=== PATIENT | male | born 1995 | race Caucasian/White ===

== ENCOUNTER 2016-06-09 06:41 | Emergency (ER) | payer OTHER ==
[~2016-06-09] VITALS: Ht 190.5 cm; Wt 63.5 kg
[2016-06-09 06:44] VITALS: BP 111/65; PULSE 68; RESP 14; TEMP 97.8; O2SAT 100
[2016-06-09] MEDS ORDERED: KETOROLAC TROMETHAMINE 60 MG/2 ML (IM) VIAL IM ONE (07:15)
--- NOTE | 2016-06-09 07:26 | PD ---
HPI Chief Complaint: Hip Injury Time Seen by Provider: 07:00 Travel History International Travel<30 days: No Contact w/Intl Traveler<30days: No Traveled to known affect area: No History of Present Illness HPI This is a 20-year-old boy. He experienced a fall from about 8 feet well doing pushups [place] He fell onto a wet sand. Majority of the impact was on the region of the left hip. It happened about 8 hours or so prior to ER arrival. His friends helped him back home. He denies drug and alcohol abuse. He did not hit his head or lose consciousness. There is constant pain in the left region of the left hip now. It's much worse with flexion. He denies sensory loss. He has no pain in the lumbar spine distribution. He has no chronic pain issues or other complaints today. [facility] Past Medical History Medical History: Denies Significant Hx Tetanus Vaccination: Unknown Past Surgical History Surgical History: No Previous Surgery Social History Alcohol Use: No Tobacco Use: Yes Allergies-Medications (Allergen,Severity, Reaction): Coded Allergies: Bee Sting (Verified Allergy, Unknown, Anaphylaxis, 06/09/16) Reported Meds & Prescriptions Reported Meds & Active Scripts Active Motrin Ib (Ibuprofen) 200 Mg Tab 600 Mg PO Q6H PRN 10 Days Review of Systems Except as stated in HPI: all other systems reviewed are Neg Physical Exam Narrative GENERAL: 20 yo M, WNWD, mild distress SKIN: Warm and dry. HEAD: Atraumatic. Normocephalic. EYES: Pupils equal and round. No scleral icterus. No injection or drainage. ENT: No nasal bleeding or discharge. Mucous membranes pink and moist. NECK: Trachea midline. No JVD. CARDIOVASCULAR: Regular rate and rhythm. RESPIRATORY: No accessory muscle use. Clear to auscultation. Breath sounds equal bilaterally. GASTROINTESTINAL: Abdomen soft, non-tender, nondistended. Hepatic and splenic margins not palpable. MUSCULOSKELETAL: TTP region of L greater trochanter. Flexion extension at ankles intact 5/5. Hip flexion is limited bilaterally due to pain. With passive lateral rotation of the left lower extremity the patient experiences pain in the hip. The patient is able to roll up into the lateral decubitus positions. 2+ dorsalis pedis pulses bilaterally. Sensation preserved throughout bilateral lower extremities NEUROLOGICAL: Awake and alert. No obvious cranial nerve deficits. Motor grossly within normal limits. Five out of 5 muscle strength in the arms and legs. Normal speech. PSYCHIATRIC: Appropriate mood and affect; insight and judgment normal. Data Data Last Documented VS Vital Signs Date Time Temp Pulse Resp B/P Pulse Ox O2 Delivery O2 Flow Rate FiO2 06/09/16 09:07 69 18 100/60 99 06/09/16 06:44 97.8 Vital signs reviewed Orders Femur (Ap & Lat/2vws) (06/09/16 07:05) Hip, Uni(Ap&Lat) W Ap Pelvis (06/09/16 07:05) Ketorolac Inj (Toradol Inj) (06/09/16 07:15) Ice / Cold Pack PRN (06/09/16 07:14) Crutches (06/09/16 ) Mandatory Outpatient Referral (06/09/16 08:40) MDM Medical Decision Making Medical Screen Exam Complete: Yes Emergency Medical Condition: Yes Differential Diagnosis Pelvis fracture, femur fracture, contusion, muscle spasm Narrative Course Last Impressions Hip and Pelvis X-Ray 06/09/16704 Signed Impressions: Service Date/Time: Thursday, June 09, 2016 07:29 - CONCLUSION: No pelvis or left hip abnormality is identified. Shamar Lopez MD Femur X-Ray 06/09/16704 Signed Impressions: Service Date/Time: Thursday, June 09, 2016 07:31 - CONCLUSION: No acute abnormality is identified. Shamar Lopez MD Pt reassured at some length. He was reexamined. Crutches provided. D/w Dr Vargas who reviewed films. Patient can head home with crutches and follow up with outpatient orthopedics. Mandatory referral order placed. Pt agreeable with plan. Diagnosis Primary Impression: Contusion of hip, left Additional Impression: Fall Qualified Code: W19.XXXA - Fall, initial encounter Referrals: Dav Vargas Jr., MD 2 days Additional Instructions: You have a choice when it comes to health care, and we are glad that you chose [facility]. Hopefully, we have met your expectations on today's visit. You are welcome to return to [facility] at any time, as we are committed to meeting the health care needs of our community. Med/Other Pt SpecificInfo: Prescription(s) given Scripts Ibuprofen (Motrin Ib)200 Mg [id number] Mg PO Q6H PRN (PAIN SCALE 6 TO 10) 10 Days Ref 0 Prov:Hermilo Ramos MD 06/09/16 Disposition: 01 DISCHARGE HOME Condition: Stable Hermilo Ramos MD Jun 09, 2016 07:26
--- NOTE | 2016-06-09 07:54 | RADRPT ---
EXAM DATE/TIME: 06/09/2016 07:29 [facility] COMPARISON: FEMUR LEFT (AP & LAT/2VWS), June 09, 2016, 7:31. INDICATIONS : Doing back flips off pier pilings landed on left side, pain left low to mid back that runs into left hip. MEDICAL HISTORY : None. SURGICAL HISTORY : None. ENCOUNTER: Initial ACUITY: 1 day PAIN SCORE: 10/10 LOCATION: Left hip FINDINGS: AP view of the pelvis with 2 views of the left hip demonstrate no fracture or dislocation. Mineraliza tion is within normal limits. No significant degenerative change is present. No soft tissue abnormali ty or radiopaque foreign body is identified. CONCLUSION: No pelvis or left hip abnormality is identified. Shamar Lopez MD on June 09, 2016 at 7:51 Board Certified Radiologist. This report was verified electronically.
--- NOTE | 2016-06-09 07:55 | RADRPT ---
EXAM DATE/TIME: 06/09/2016 07:31 [facility] COMPARISON: No previous studies available for comparison. INDICATIONS : Doing back flips off pier pilings landing on left side, pain lower to mid back radiating into left hi p and leg. MEDICAL HISTORY : None. SURGICAL HISTORY : None. ENCOUNTER: Initial ACUITY: 1 day PAIN SCORE: 10/10 LOCATION: Left femur. FINDINGS: 5 views of the left femur demonstrate no fracture or dislocation. Mineralization is within normal ramirez its. No soft tissue abnormality or opaque foreign body is identified. CONCLUSION: No acute abnormality is identified. Shamar Lopez MD on June 09, 2016 at 7:53 Board Certified Radiologist. This report was verified electronically.
[2016-06-09] MEDS ORDERED: MOTR200T4 PO (08:39)
[2016-06-09 09:07] VITALS: BP 100/60
== END 2016-06-09 09:09 | disposition home or self-care (01) ==
LOC: NEPE 06:41
DX: S70.02XA Contusion of left hip, initial encounter (principal); Z72.0 Tobacco use; W17.89XA Other fall from one level to another, initial encounter; Y93.43 Activity, gymnastics; Y92.832 Beach as the place of occurrence of the external cause; Y99.8 Other external cause status
CPT/HCPCS: 73502; 73552; 96372; 99283; E0113; J1885